=== PATIENT | female | born 1985 | race Caucasian/White ===

== ENCOUNTER 2016-09-25 15:07 | Emergency (ER) | payer OTHER ==
--- NOTE | ~2016-09-25 | EKG ---
PATIENT: AUGIE LEE UNIT #: [id number] Ventricular Rate: 99 BPM Atrial Rate: 99 BPM P-R Interval: 142 ms QRS Duration: 150 ms Q-T Interval: 380 ms QTC Calculation(Bezet): 487 ms P Jackson: 47 degrees Calculated R Jackson: 0 degrees Calculated T Jackson: 32 degrees Diagnosis Line: Normal sinus rhythm Diagnosis Line: Right bundle branch block with repolarization Diagnosis Line: abnormality Diagnosis Line: Abnormal ECG Diagnosis Line: When compared with ECG of 29-DEC-2015 01:30, Diagnosis Line: Criteria for Inferior infarct are no longer Diagnosis Line: Present Diagnosis Line: Nonspecific T wave abnormality has replaced Diagnosis Line: inverted T waves in Inferior leads Diagnosis Line: T wave inversion no longer evident in Anterior Diagnosis Line: leads Diagnosis Line: Confirmed by SALLY SAINI MD ([id number]) on 09/25/2016 Diagnosis Line: 4:17:43 PM INTERPRETING MD: YENY MORRIS
--- NOTE | ~2016-09-25 | CR72 ---
[facility] A Service of [facility] RADIOLOGY TEXT RESULTS PATIENT: AUGIE LEE LOCATION: [facility] : [birth year] UNIT #: [id number] AGE: [address]: Abhilash Hassan MD SEX: F ORDER DR: [id number] [facility] [address] [facility] [place], [place] [address] [id number] MR#: [id number] Acc #: [id number] NAME: AUGIE LEE : 1985 SEX: F STUDY DATE/TIME: 09/25/2016 15:34 UNIT: [facility] ROOM: STUDY DESCRIPTION: CR Chest Single View Portable Attending Physician: Abhilash Hassan M.D. Referring Physician: Nelson Gonzalez M.D. Ordering Physician: Ed Abdullahi Staton M.D. Primary Care Physician: See Adamson Aprn MEDICAL IMAGING REPORT This report is preliminary unless electronic signature is present EXAM Portable chest. DATE OF EXAM 09/25/2016 LOCATION [facility]. HISTORY Left chest pain, altered mental status. Symptoms 4 days duration. COMPARISON 08/28/2013. FINDINGS Portable chest is negative and stable. Heart size is normal. Hilar structures are preserved. Lungs are expanded and clear. IMPRESSION Negative chest. Dictated by... Ramírez Dumont M.D. THIS IS AN ELECTRONICALLY VERIFIED REPORT Ramírez Dumont M.D. at 09/26/2016 8:04 AM MICHELL/hayden TD: 09/25/2016 22:14 JOB #: [id number] [facility] A Service of [facility] RADIOLOGY TEXT RESULTS PATIENT: AUGIE LEE LOCATION: [facility] : 85 UNIT #: [id number] AGE: [address]: Abhilash Hassan MD SEX: F ORDER DR: MEDICAL IMAGING REPORT COPY
[2016-09-25 15:00] LABS: BASOPHIL# 0.1 X10e3 (0-0.3); BASOPHIL% 0.8 % (0-2.5); EOSINOPHIL# 0.1 X10e3 (0-0.7); HEMATOCRIT 46.9 % (35.0-45.0); LYMPHOCYTE# 1.8 X10e3 (1.0-3.5); LYMPHOCYTE% 25.5 % (17.0-45.0); MEAN CELL VOLUME 89.7 FL (83-96); MEAN CORPUSCULAR HEMOGLOBIN 30.6 PG (28-34); MEAN CORPUSCULAR HGB CONC 34.1 g/dL (30-36); MEAN PLATELET VOLUME 8.3 FL (6.5-11.5); MONOCYTE# 0.8 X10e3 (0-1.0); MONOCYTE% 11.6 % (3.0-12.0); NEUTROPHIL# 4.3 X10e3 (1.5-7.1); NEUTROPHIL% 60.1 % (40-75); PLATELET COUNT 190 X10e3 (140-420); RED BLOOD COUNT 5.23 X10e (3.90-5.30); RED CELL DISTRIBUTION WIDTH 14.9 % (11.0-15.5); WHITE BLOOD COUNT 7.2 X10e3 (4.0-10.5)
[2016-09-25 15:06] LABS: DIFF IND NO
[~2016-09-25 15:07] MED LIST: ACETAMINOPHEN PO; ALPRAZOLAM PO; AMOXICILLIN PO; AMOXICILLIN500 M1 PO; CERTAGEN PO; CIPRO PO; DICLOFENAC PO; FLAGYL PO; KEFLEX500 MG PO; LOMOTIL TABLET1 TAB PO; MEDROL DOSEPAK4 MG PO; PEN-VEE K PO; PERCOCET10 PO; PHENERGAN PO; VICODIN 5/1 TAB 5/50 PO; ZOFRAN ODT4 MG PO
[2016-09-25 15:24] LABS: ALBUMIN SERUM 4.1 g/dL (3.5-5.0); ALKALINE PHOSPHATASE 99 U/L (32-92); ALT (SGPT) 121 U/L (10-40); AST (SGOT) 149 U/L (10-42); BILIRUBIN, DIRECT 0.2 mg/dL (0.0-0.2); BILIRUBIN,INDIRECT 0.6 mg/dL (0.0-0.9); BILIRUBIN,TOTAL 0.8 mg/dL (0.2-2.0); BLOOD UREA NITROGEN 11 mg/dL (9-23); BUN/CREATININE RATIO 15.71; CALCIUM SERUM 8.7 mg/dL (8.4-10.2); CARBON DIOXIDE 26 mmol/L (22-31); CHLORIDE 94 mmol/L (100-111); CREATININE SERUM 0.7 mg/dL (0.6-1.4); GLOM FILT RATE Estimated ABOVE60 mL/min (>60); GLUCOSE FASTING 100 mg/dL (70-110); POTASSIUM 4.4 mmol/L (3.5-5.1); PROTEIN TOTAL SERUM 7.4 g/dL (6.0-8.3); SALICYLATE <4.0 mg/dL; SODIUM 134 mmol/L (135-145)
[2016-09-25 15:28] LABS: ACETAMINOPHEN <10 ug/mL; ALCOHOL BLOOD 412 mg/dL (0)
[2016-09-25 16:26] LABS: URINE SOURCE CLEAN CATCH
[2016-09-25 16:33] LABS: URINE APPEARANCE CLEAR; URINE BILIRUBIN NEG (NEG); URINE BLOOD NEG (NEG); URINE COLOR YELLOW; URINE GLUCOSE NEG (NEG); URINE KETONE NEG (NEG); URINE LEUKOCYTE ESTERASE NEG (NEG); URINE NITRATE NEG (NEG); URINE PROTEIN NEG (NEG); URINE SPECIFIC GRAVITY 1.008 (1.003-1.035); URINE UROBILINOGEN 0.2 MG/DL (NEG)
[2016-09-25 16:39] LABS: CULTURE INDICATED? NO
[2016-09-25 16:46] LABS: AMPHETAMINE NEG (NEG); BARBITURATES NEG (NEG); BENZODIAZEPINES POS (NEG); COCAINE NEG (NEG); MARIJUANA POS (NEG); OPIATES NEG (NEG); TRICYCLIC ANTIDEPRESSANTS NEG (NEG); U METHADONE NEG (NEG)
== END 2016-09-25 21:15 | disposition home or self-care (01) ==
LOC: CED 15:07
PROVIDERS: Emergency Medicine
DX: F10.10 Alcohol abuse, uncomplicated (principal); F31.9 Bipolar disorder, unspecified; F41.9 Anxiety disorder, unspecified; F17.210 Nicotine dependence, cigarettes, uncomplicated
CPT/HCPCS: 36415; 71010; 80048; 80076; 80307; 81003; 84703; 85025; 93005; 99284; G0480

== ENCOUNTER 2016-09-27 10:20 | Inpatient (IN) | payer OTHER ==
--- NOTE | ~2016-09-27 | HP ---
Unit #: [id number] #: [id number] Patient: AUGIE LEE [id number] [facility] [address] [place] [address] [id number] I MR#: [id number] NAME: AUGIE LEE ROOM: P179 Age: 31 Sex: F Admission Date: 09/27/2016 : 1985 Attending Physician: April Chu M.D. Admitting Physician: April Chu M.D. Primary Care Physician: See Adamson Aprn HISTORY AND PHYSICAL HISTORY OF PRESENT ILLNESS Augie is a 31 year old admitted to [facility] because of her continued abuse of alcohol. She has had other admissions to this facility for the same. PAST MEDICAL HISTORY 1. Long history of alcohol abuse. 2. History of withdrawal seizures. 3. Morbid obesity. PAST SURGICAL HISTORY 1. T and A. 2. Tubal ligation. ALLERGIES Latex. SOCIAL HISTORY Smokes 1 pack per day. Drinks up to a fifth of liquor on a daily basis and denies illicit drug use. FAMILY HISTORY Medically noncontributory. REVIEW OF SYSTEMS CONSTITUTIONAL: No fever or chills. HEENT: Denies any sore throat, ear pain or runny nose. CARDIOVASCULAR: Denies chest pain, irregular heart rhythm or palpitations. CHEST: Denies shortness of breath or cough. No hemoptysis. GASTROINTESTINAL: Denies nausea, vomiting, diarrhea or chronic constipation. ENDOCRINE: Denies history of increased thirst or urination. No recent significant weight loss or gain. GENITOURINARY: Denies dysuria, frequency, or hematuria. SKIN: Denies any rashes. HEMATOLOGIC: Denies history of increased bleeding or bruising. MUSCULOSKELETAL: Denies any hot, swollen joints. No generalized muscle pain. NEUROLOGIC: Denies problems with vision or speech. No frequent, severe headaches. No numbness, tingling or weakness in any extremities. Denies loss of bladder or bowel control. CURRENT MEDICATIONS Detox protocol. Unit #: [id number] #: [id number] Patient: AUGIE LEE PHYSICAL EXAMINATION GENERAL: Alert, obese, in no apparent distress. VITAL SIGNS: Blood pressure 110/60, heart rate 80, respirations 16, temperature 98.6. WEIGHT: 190. HEIGHT: 5 feet 6 inches. SKIN: Warm and dry without rash or lesion. HEENT: Normocephalic. TMs not viewed. Oral and nasal passages clear. Conjunctivae clear. PERRLA. EOMs intact. NECK: Supple without lymphadenopathy or thyromegaly. HEART: Regular rate and rhythm without murmur. LUNGS: Clear. ABDOMEN: Soft, nontender. : Not done. EXTREMITIES: No evidence of cyanosis, clubbing or edema. Moves all without focal deficit. NEUROLOGICAL: Grossly within normal limits. Cranial Nerves: II: Visual salazar are intact. III, IV AND : Extraocular movements are intact. Pupils are equal, round and reactive to light. V: Facial sensation is grossly normal. VII: Facial movements and expression are normal. VIII: Auditory acuity grossly intact. IX, X: Uvula is midline. Phonation is normal. XI: Patient shrugs shoulders and turns head normally. XII: Tongue protrudes in the midline. Sensory and Motor Function: Sensory and motor sensation is grossly normal. Motor: moves all extremities well. Coordination: Gait is normal. Deep Tendon Reflexes: Intact. IMPRESSION Psychiatric admission. RECOMMENDATIONS PSYCHIATRIC: Per psychiatrist. MEDICAL: See no contraindications to participate in facility's activities. MEDICAL PROGNOSIS Good. MEDICAL CONDITION Stable. Dictated by... Kae Dias PShanellAShanell-Negin. for Nano Gray/jamila TD: 09/28/2016 17:52 JOB #: [id number] Unit #: [id number] #: [id number] Patient: AUGIE LEE HISTORY AND PHYSICAL X Kae Dias X HISTORY AND PHYSICAL
--- NOTE | ~2016-09-27 | PN ---
Unit #: [id number] #: [id number] Patient: AUGIE LEE [id number] [facility] [address] [place] [address] [id number] I MR#: [id number] NAME: AUGIE LEE ROOM: [facility] Age: 31 Sex: F Admission Date: 09/27/2016 : 1985 Attending Physician: April Chu M.D. Admitting Physician: April Chu M.D. Primary Care Physician: Roxana Temple NOTES DATE September 30, 2016 DISCUSSION Ms. Lee is a 31-year-old white female, who was seen today and chart was reviewed and the case was discussed with the staff. She has been anxious, withdrawn, and rather seclusive to herself. Meanwhile, she has been cooperative with the treatment recommendations and she has been taking the medications and tolerating them fairly well with no reported side effects. MENTAL STATUS EXAMINATION Young white female, who was casually dressed with fair personal hygiene and appears to be in no acute distress or discomfort. She was awake and alert on interaction with intact orientation. Her mood was anxious and depressed with a congruent affect. The patient denies any suicidal or homicidal ideations, and also denies any auditory or visual hallucinations. Her insight and judgment remain slightly impaired. TREATMENT PLAN 1. We will continue her on her current medications and treatment protocol, and will monitor her response, and make further adjustments as needed. 2. We will continue to followup. Dictated by... Nano Rosa/leslie TD: 10/01/2016 12:08 JOB #: [id number] Unit #: [id number] #: [id number] Patient: AUGIE LEE PROGRESS NOTES Page 1 of 1 X April Chu MD PROGRESS NOTE
--- NOTE | ~2016-09-27 | DS ---
Unit #: [id number] #: [id number] Patient: [facility] LEE [id number] [facility] [address] [place] [address] [id number] I MR#: [id number] NAME: AUGIE LEE ROOM: P179 Age: 31 Sex: F Admission Date: 09/27/2016 : 1985 Discharge Date: 10/01/2016 Attending Physician: April Chu M.D. Primary Care Physician: See Adamson Aprn DISCHARGE SUMMARY IDENTIFYING DATA Ms. Lee is a 31-year-old single white female, who is a resident of [place], [place], and was self-referred to the hospital on a voluntary basis. DISCHARGE DIAGNOSES Psychiatric: Alcohol dependence, moderate and acute withdrawal; alcohol-induced mood disorder. Medical: History of withdrawal seizures, history of delirium tremens. Stressors: Moderate psychosocial stressors. HISTORY OF PRESENT ILLNESS Please see initial psychiatric evaluation for details. PAST PSYCHIATRIC HISTORY Please see initial psychiatric evaluation for details. PAST MEDICAL HISTORY Please see initial psychiatric evaluation for details. HOSPITAL COURSE The patient was [facility] and was oriented to the hospital environment. Routine p.r.n. medications were initiated, and she was started on the alcohol detox protocol and was closely monitored. She was taking the medications regularly and was tolerating them fairly well and was able to come out of the detox without any complications and was willing to continue treatment on an outpatient basis and as such, it was decided that she will be discharged home and will continue treatment on an outpatient basis. DISCHARGE MEDICATIONS None. DISCHARGE CONDITION Stable. PROGNOSIS Fair. Dictated by... April Chu M.D. IAA/modl Unit #: [id number] #: [id number] Patient: AUGIE LEE TD: 10/01/2016 23:14 JOB #: [id number] DISCHARGE SUMMARY Page 1 of 1 X April Chu MD DISCHARGE SUMMARY
--- NOTE | ~2016-09-27 | PN ---
Unit #: [id number] #: [id number] Patient: AUGIE LEE [id number] [facility] [address] [place] [address] [id number] I MR#: [id number] NAME: AUGIE LEE ROOM: [facility] Age: 31 Sex: F Admission Date: 09/27/2016 : 1985 Attending Physician: April Chu M.D. Admitting Physician: April Chu M.D. Primary Care Physician: Roxana Temple PROGRESS NOTES DATE 09/28/2016 DISCUSSION Ms. Lee is a 31-year-old white female who was seen today and chart was reviewed and case was discussed with the staff. She has been anxious, withdrawn though has not shown any agitation, irritability and has been cooperative with treatment recommendations. She has been taking the medications and tolerating them fairly well. MENTAL STATUS EXAMINATION Young white female who was casually dressed with fair personal hygiene, appears to be in no acute distress or discomfort. She was awake and alert on interaction with intact orientation. Her mood was anxious with congruent affect. Her speech was slow and goal-directed. She denies any suicidal or homicidal ideations. Also, denies any auditory or visual hallucinations. Her insight and judgement remains slightly impaired. TREATMENT PLAN 1. We will continue her on her current medications and detox protocol. We will monitor her response to the medication and make further adjustments as needed. 2. We will continue to follow up. Dictated by... Nano Rosa/angie TD: 09/30/2016 00:37 JOB #: [id number] Unit #: [id number] #: [id number] Patient: AUGIE LEE PROGRESS NOTES X April Chu MD PROGRESS NOTE
--- NOTE | ~2016-09-27 | PA ---
Unit #: [id number] #: [id number] Patient: [facility] LEE [id number] [facility] [address] [place] [address] [id number] I MR#: [id number] NAME: AUGIE LEE ROOM: P179 Age: 31 Sex: F Admission Date: 09/27/2016 : 1985 Date of Assessment: 09/27/2016 Attending Physician: April Chu M.D. Admitting Physician: April Chu M.D. Primary Care Physician: See Adamson Aprn PSYCHIATRIC ASSESSMENT DATE OF SERVICE 09/27/2016. IDENTIFYING DATA Ms. Lee is a 31-year-old single white female, who is a resident of [place], [place], and was self-referred to the hospital on a voluntary basis. CHIEF COMPLAINT "I have been drinking too much." HISTORY OF PRESENT ILLNESS Ms. Lee is a 31-year-old white female, who was initially at [facility] and was sent home and continued to drink and came for another assessment and had a blood alcohol level of 0.298, which later dropped to 0.229, and [facility], it was 0.194 and she reports that she has a history of DTs and a seizure disorder and reports that nothing has changed since the last time other than she continues to drink, and her fiance initially day before called EMS to pick her up from her home due to significant alcohol abuse and experiencing withdrawals due to being off prescribed Ativan for 5 days and reports consuming a fifth of vodka a day for the last month and reports her primary care physician discontinued prescribing Ativan due to testing positive for marijuana in drug screen, and the patient reports moderate withdrawal symptoms of nausea and having upset stomach and headache and had significant withdrawal symptoms and was seen to be a danger to self due to history of delirium tremens and withdrawal seizures and acute alcohol intoxication and therefore, a recommendation for inpatient level of care was made and the patient was medically cleared at [facility] and then transferred to us. SUBSTANCE ABUSE HISTORY The patient has a history of alcohol, cannabis, and cocaine abuse, though alcohol appears to be her drug of choice as she reports that she has been drinking since she was 14 years old and currently has been drinking a fifth of vodka a day. PAST PSYCHIATRIC HISTORY The patient has not had any prior inpatient or outpatient psychiatric treatment. Review of the medical records indicate that currently she is not active in any treatment program, is not seeing a psychiatrist, and is not taking any psychotropic medications. Unit #: [id number] #: [id number] Patient: AUGIE LEE PAST MEDICAL HISTORY Significant for history of withdrawal seizures and delirium tremens. ALLERGIES IV dye. PERSONAL AND SOCIAL HISTORY A 31-year-old white female, who reports that she lives at home with her fiance and is unemployed and has fairly decent social support system. MENTAL STATUS EXAMINATION Young white female, who was casually dressed with a fair personal hygiene, appears to be in no acute distress or discomfort. She was awake and alert on interaction with intact orientation. Her mood was anxious with a congruent affect. Her speech was slow and goal directed. She denies any suicidal or homicidal ideations and also denies any auditory or visual hallucinations. Her insight and judgment remain significantly impaired. DIAGNOSTIC IMPRESSION Psychiatric: Alcohol dependence, moderate, in acute withdrawals and alcohol-induced mood disorder. Medical: History of withdrawal seizures and history of delirium tremens. Stressors: Moderate psychosocial stressors. TREATMENT PLAN 1. The patient has presented with a history of substance abuse and mood disorder and has been decompensating and will need inpatient hospitalization for detoxification, safety, and stabilization. We will start her on detox protocol. We will closely monitor for any worsening withdrawal symptoms. 2. Supportive therapy was provided to the patient. 3. Safe, structured, and nourishing environment will be provided. ESTIMATED LENGTH OF STAY 5 to 7 days. ABILITY TO HELP SELF Limited. WILLINGNESS TO HELP SELF The patient appears to be willing to help self. STRENGTHS 1. Communicative. 2. Cooperative. PROBLEMS 1. Chronic dysphoric symptoms. 2. Chronic chemical dependency. 3. Poor social support system. DISCHARGE CRITERIA This will be contingent upon the patient's ability to go through detox without having any significant withdrawal symptoms as well as her ability to stay safe to herself, particularly after discharge from the hospital. Dictated by... Unit #: [id number] #: [id number] Patient: AUGIE LEE Nano Rosa/maya TD: 09/28/2016 13:00 JOB #: [id number] PSYCHIATRIC ASSESSMENT X April Chu MD PSYCHIATRIC ASSESSMENT
--- NOTE | ~2016-09-27 | PN ---
Unit #: [id number] #: [id number] Patient: AUGIE LEE [id number] [facility] [address] [place] [address] [id number] MR#: [id number] NAME: AUGIE LEE ROOM: P179 Age: 31 Sex: F Admission Date: 09/27/2016 : 1985 Attending Physician: April Chu M.D. Admitting Physician: April Chu M.D. Primary Care Physician: Roxana Temple NOTES DATE OF SERVICE: 09/29/2016 SUBJECTIVE Ms. Lee is a 31-year-old white female with alcohol dependance, who was seen today and chart was reviewed, and case was discussed with the staff. She has been doing fairly well and appears to be coming out of the detox without any complications. She has been taking the medications and tolerating them fairly well. MENTAL STATUS EXAMINATION Young white female, who was casually dressed with fair personal hygiene, appears to be in no acute distress or discomfort. She was awake and alert on interaction with intact orientation. Her mood was anxious with a congruent affect. She denies any suicidal or homicidal ideations. Her insight and judgment remain slightly impaired. TREATMENT PLAN 1. We will continue her on her current medications and treatment protocol. We will monitor her response and make further adjustments as needed. 2. We will continue to follow up. Dictated by... Nano Rosa/maya TD: 09/30/2016 06:09 JOB #: [id number] [facility] NOTES X April Chu MD PROGRESS NOTE
[2016-09-28 13:40] LABS: BASOPHIL% 0.8 % (0-2.5); EOSINOPHIL# 0.1 X10e3 (0-0.7); EOSINOPHIL% 2.9 % (0.0-7.0); HEMATOCRIT 41.9 % (35.0-45.0); LYMPHOCYTE# 1.4 X10e3 (1.0-3.5); LYMPHOCYTE% 27.1 % (17.0-45.0); MEAN CELL VOLUME 90.1 FL (83-96); MEAN CORPUSCULAR HEMOGLOBIN 30.1 PG (28-34); MEAN CORPUSCULAR HGB CONC 33.4 g/dL (30-36); MEAN PLATELET VOLUME 9.4 FL (6.5-11.5); MONOCYTE# 0.5 X10e3 (0-1.0); MONOCYTE% 9.7 % (3.0-12.0); NEUTROPHIL# 3.1 X10e3 (1.5-7.1); NEUTROPHIL% 59.5 % (40-75); PLATELET COUNT 105 X10e3 (140-420); RED BLOOD COUNT 4.65 X10e (3.90-5.30); RED CELL DISTRIBUTION WIDTH 14.9 % (11.0-15.5); WHITE BLOOD COUNT 5.1 X10e3 (4.0-10.5)
[2016-09-28 13:53] LABS: DIFF IND NO
[2016-09-28 14:01] LABS: ALBUMIN SERUM 3.7 g/dL (3.5-5.0); ALKALINE PHOSPHATASE 99 U/L (32-92); ALT (SGPT) 94 U/L (10-40); AST (SGOT) 108 U/L (10-42); BILIRUBIN,TOTAL 1.3 mg/dL (0.2-2.0); BLOOD UREA NITROGEN 11 mg/dL (9-23); BUN/CREATININE RATIO 13.75; CALCIUM SERUM 9.2 mg/dL (8.4-10.2); CARBON DIOXIDE 28 mmol/L (22-31); CHLORIDE 96 mmol/L (100-111); CREATININE SERUM 0.8 mg/dL (0.6-1.4); GLOM FILT RATE Estimated ABOVE60 mL/min (>60); GLUCOSE FASTING 117 mg/dL (70-110); POTASSIUM 3.4 mmol/L (3.5-5.1); PROTEIN TOTAL SERUM 6.7 g/dL (6.0-8.3); SODIUM 136 mmol/L (135-145)
[2016-09-28 14:08] LABS: THYROID STIMULATING HORMONE 1.68 uIU/ml (0.34-5.60)
[2016-09-28 14:15] LABS: FREE THYROXIN (T4) 0.85 ng/dL (0.58-1.64)
[2016-09-28 14:33] LABS: URINE APPEARANCE CLEAR; URINE BILIRUBIN NEG (NEG); URINE BLOOD NEG (NEG); URINE COLOR YELLOW; URINE GLUCOSE NEG (NEG); URINE KETONE NEG (NEG); URINE LEUKOCYTE ESTERASE NEG (NEG); URINE NITRATE NEG (NEG); URINE PH 6.5 (5-8); URINE PROTEIN NEG (NEG); URINE SPECIFIC GRAVITY 1.006 (1.003-1.035); URINE UROBILINOGEN 0.2 MG/DL (NEG)
[2016-09-28 14:55] LABS: AMPHETAMINE NEG (NEG); BARBITURATES NEG (NEG); BENZODIAZEPINES POS (NEG); COCAINE NEG (NEG); MARIJUANA POS (NEG); OPIATES NEG (NEG); TRICYCLIC ANTIDEPRESSANTS NEG (NEG); U METHADONE NEG (NEG)
== END 2016-10-01 09:00 | disposition home or self-care (01) | DRG 897 ==
LOC: P1E 10:20
PROVIDERS: Psychiatry & Neurology Psychiatry
PROC: HZ2ZZZZ Detoxification Services for Substance Abuse Treatment (ICD-10-PCS; principal; 2016-09-27)
DX: F10.239 Alcohol dependence with withdrawal, unspecified (principal); E66.01 Morbid (severe) obesity due to excess calories; Y90.8 Blood alcohol level of 240 mg/100 ml or more; F10.24 Alcohol dependence with alcohol-induced mood disorder; Z91.041 Radiographic dye allergy status; Z98.51 Tubal ligation status; Z91.040 Latex allergy status; F17.210 Nicotine dependence, cigarettes, uncomplicated; Z68.30 Body mass index [BMI] 30.0-30.9, adult
CPT/HCPCS: 80053; 80307; 81003; 84439; 84443; 84703; 85025; 86592; J2550